=== PATIENT | female | born 1980 | race Two or more races ===

== ENCOUNTER 2022-01-23 09:30 | Day surgery (SDC) | payer OTHER ==
[2022-01-23] MEDS ORDERED: NAPR500T14 PO (15:19)
[2022-01-23] MEDS ORDERED: MORGIDOX100 MG PO (15:19)
== END 2022-01-23 20:10 | disposition home or self-care (01) ==
LOC: CIR.AMB 09:30
PROVIDERS: ATTEND Obstetrics & Gynecology
DX: N84.0 Polyp of corpus uteri (principal); N80.0 Endometriosis of uterus; Z20.822 Contact with and (suspected) exposure to COVID-19